=== PATIENT | female | born 1975 | race African-American/Black ===

== ENCOUNTER 2019-05-11 09:03 | Emergency (ER) | payer MEDICAID ==
[~2019-05-11] VITALS: Ht 162.6 cm; Wt 74.0 kg
[2019-05-11] MEDS ORDERED: CEFTRIAXONE SODIUM 250 MG/VIAL IM ONE (10:30)
[2019-05-11] MEDS ORDERED: AZITHROMYCIN 500 MG TABLET PO ONE (10:30)
[2019-05-11 10:57] VITALS: BP 130/80
[2019-05-14 04:09] LABS: CHLAMYDIA TRACHOMATIS NAA Negative (Negative); NEISSERIA GONORRHOEAE NAA Negative (Negative)
== END 2019-05-11 10:58 | disposition home or self-care (01) ==
LOC: ER 09:06
DX: Z20.2 Contact with and (suspected) exposure to infections with a predominantly sexual mode of transmission (principal)
CPT/HCPCS: 87070; 87430; 87491; 87591; 96372; 99283; J0696